=== PATIENT | female | born 1965 | race Caucasian/White ===

== ENCOUNTER 2016-10-10 22:28 | Emergency (ER) | payer SELFPAY ==
[2016-10-10 23:11] VITALS: BP 115/84
== END 2016-10-11 01:53 | disposition left against medical advice (07) ==
LOC: ED 22:28
DX: Z53.21 Procedure and treatment not carried out due to patient leaving prior to being seen by health care provider (principal)

== ENCOUNTER 2017-07-27 22:58 | Emergency (ER) | payer MEDICAID ==
[~2017-07-27] VITALS: Ht 167.6 cm; Wt 76.2 kg
[2017-07-27 23:04] VITALS: Ht 167.6 cm; Wt 76.2 kg
[2017-07-28 01:20] LABS: BASOPHIL % 0.9 % (0-2); PLATELET COUNT 337 x10^3mcL (130-400); RED CELL DISTRIBUTION WIDTH 12.9 % (11.5-14.5)
[2017-07-28 01:28] LABS: CALCIUM 9.4 mg/dL (8.5-10.1); CARBON DIOXIDE 26.1 mmol/L (21-32); CHLORIDE SERUM 102 mmol/L (98-107); CREATININE SERUM 0.8 mg/dL (0.6-1.0); GFR1 > 60 mL/min; GLUCOSE SERUM 110 mg/dL (74-106); POTASSIUM SERUM 3.7 mmol/L (3.5-5.1); SODIUM SERUM 140 mmol/L (136-145)
[2017-07-28 02:43] VITALS: BP 103/73
== END 2017-07-28 02:43 | disposition home or self-care (01) ==
LOC: ED 22:58
PROVIDERS: Emergency Medicine
DX: R22.1 Localized swelling, mass and lump, neck (principal); E78.00 Pure hypercholesterolemia, unspecified
CPT/HCPCS: 36415; Q0092